=== PATIENT | male | born 1955 | race Caucasian/White ===

== ENCOUNTER 2017-06-04 15:34 | Emergency (ER) | payer OTHER ==
[2017-06-04 15:38] VITALS: RESP 18; TEMP 97.9
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
--- NOTE | 2017-06-04 16:26 | RAD ---
HISTORY: hypoxia COMPARISON: No prior. FINDINGS: LUNGS: No focal consolidation. Diffuse coarse interstitial infiltrate. PLEURA: No significant pleural effusion identified, no pneumothorax apparent. CARDIOVASCULAR: Normal. OSSEOUS STRUCTURES: No significant abnormalities. VISUALIZED UPPER ABDOMEN: Normal. OTHER FINDINGS: None. IMPRESSION: Diffuse interstitial infiltrate, possibly chronic. No focal consolidation.
[2017-06-04 16:48] LABS: BASO % 0.2 % (0.0-2.0); EOS # 0.1 K/uL (0.0-0.7); EOS % 0.4 % (0.0-4.0); HEMOGLOBIN 15.3 g/dL (12.0-18.0); LYMPH # 1.2 K/uL (1.0-4.3); LYMPH % 8.9 % (20.0-40.0); MEAN CORPUSCULAR HEMOGLOBIN 34.4 pg (27.0-31.0); MEAN CORPUSCULAR HGB CONC 34.4 g/dL (33.0-37.0); MEAN PLATELET VOLUME 7.8 fl (7.2-11.7); MONO # 0.7 K/uL (0.0-0.8); MONO % 5.4 % (0.0-10.0); NEUT # 11.7 K/uL (1.8-7.0); NEUT % 85.1 % (50.0-75.0); PLATELET COUNT 365 K/uL (130-400); RBC 4.45 Mil/uL (4.40-5.90); RED CELL DISTRIBUTION WIDTH 12.7 % (11.5-14.5); WHITE BLOOD COUNT 13.7 K/uL (4.8-10.8)
[2017-06-04 16:57] LABS: ALB/GLOB RATIO 1.3 (1.0-2.1); ALBUMIN 4.3 g/dL (3.5-5.0); ALT/SGPT 33 U/L (21-72); AST/SGOT 32 U/L (17-59); BLOOD UREA NITROGEN 10 mg/dl (9-20); CALCIUM 8.9 mg/dL (8.4-10.2); GFR AFRICAN-AMERICAN > 60; GFR NON-AFRICAN AMERICAN > 60
[2017-06-04 17:28] LABS: BANDS 2 % (0-2); EOSINOPHIL 2 % (0-7); LYMPHOCYTE 4 % (20-50); MONOCYTE 4 % (0-10); NEUTROPHIL 82 % (42-75); REACTIVE LYMPHOCYTES 6 % (0-0); TOTAL CELLS COUNTED 100
[2017-06-04 17:30] LABS: PLATELET ESTIMATE NORMAL (NORMAL)
[2017-06-04] MEDS ORDERED: Albuterol-Ipratrop 3 mg / 0.5 (3 ml) UD ONE (18:10)
[2017-06-04] MEDS: Albuterol-Ipratrop 3 mg / 0.5 (3 ml) UD INH STA (18:11)
[2017-06-04 19:28] VITALS: BP 136/90; PULSE 93; O2SAT 99
--- NOTE | 2017-06-05 22:19 | CARD ---
APPROVED REPORT EKG Measurement Heart [id number] <Conclusion> Sinus tachycardia Minimal voltage criteria for LVH, may be normal variant Borderline ECG
== END 2017-06-04 18:56 | disposition home or self-care (01) ==
LOC: H.ER 15:34
DX: F11.10 Opioid abuse, uncomplicated (principal); F10.10 Alcohol abuse, uncomplicated; G89.29 Other chronic pain; F17.200 Nicotine dependence, unspecified, uncomplicated